=== PATIENT | female | born 1995 | race Caucasian/White ===

== ENCOUNTER → 2018-03-30 13:40 | Outpatient (CLI) | payer OTHER, SELFPAY ==
[2018-03-30 16:37] LABS: Hepatitis B Surface Antigen NEGATIVE s/c (NEGATIVE)
[2018-03-30 16:38] LABS: HIV 1 and 2 Antibody NEGATIVE (NEGATIVE); Hep C Virus Ab w/Reflex Quant NEGATIVE s/c (NEGATIVE)
[2018-04-07 14:52] LABS: Rapid Plasma Reagin NON REACTIVE
== END ==
PROVIDERS: Visit Provider Physician Assistant
DX: N89.8 Other specified noninflammatory disorders of vagina (principal); Z11.3 Encounter for screening for infections with a predominantly sexual mode of transmission
CPT/HCPCS: 36415; 86592; 86703; 86803; 87210; 87340; 87491; 87591

== ENCOUNTER → 2018-04-06 11:13 | Outpatient (CLI) | payer BC, SELFPAY ==
[2018-04-06 14:48] LABS: Urine N gonorrhoeae NOT DETECTED
[2018-04-07 10:47] LABS: Urine Chlamydia DETECTED
== END ==
PROVIDERS: Visit Provider Physician Assistant
DX: N89.8 Other specified noninflammatory disorders of vagina (principal)
CPT/HCPCS: 87210; 87491; 87591

== ENCOUNTER → 2018-04-06 11:35 | Outpatient (CLI) | payer BC, SELFPAY ==
[2018-04-06 12:35] LABS: Hematocrit 42.4 % (36-46); Hemoglobin 14.4 g/dL (12.0-16.0); Mean Corpuscular Hemoglobin 30.6 PG (26-34); Mean Corpuscular Volume 90.2 fL (80-100); Platelet Count 322 X10^3/uL (150-400); White Blood Cell Count 6.6 X10^3/uL (4.5-11.0)
[2018-04-06 12:54] LABS: Alanine Aminotransferase 27 IU/L (9-52); Albumin 4.5 g/dL (3.5-5.0); Albumin Globulin Ratio 1.5 (1.0-2.8); Alkaline Phosphatase 76 U/L (38-126); Aspartate Aminotransferase 24 IU/L (14-36); BUN Creatinine Ratio 21.4 (6-22); Bilirubin Total 1.2 mg/dL (0.2-1.3); Blood Urea Nitrogen 15 mg/dL (7-17); Calcium 9.5 mg/dL (8.4-10.2); Carbon Dioxide 32 mmol/L (22-32); Chloride 102 mmol/L (98-107); Estimated Glomerular Filt Rate > 60.0 mL/min (>60); Glucose 88 mg/dL (70-100); HEMOLYSIS < 15 (0-50); Potassium 4.3 mmol/L (3.4-5.1); Sodium 143 mmol/L (137-145); Total Protein 7.5 g/dL (6.3-8.2)
[2018-04-06 13:00] LABS: Neutrophils Absolute Manual 4026 /uL (3000-5900); RBC Morphology Normal Morphology; Total Cells Counted 100
== END ==
PROVIDERS: Visit Provider Physician Assistant
DX: R10.9 Unspecified abdominal pain (principal); N89.8 Other specified noninflammatory disorders of vagina
CPT/HCPCS: 36415; 80053; 85025; 87210; 87491; 87591

== ENCOUNTER → 2018-05-05 14:30 | Outpatient (CLI) | payer BC, SELFPAY ==
[2018-05-05 15:15] LABS: Pregnancy Test Serum,Qual Negative (Negative)
[2018-05-05 16:46] LABS: Urine N gonorrhoeae NOT DETECTED
[2018-05-05 18:43] LABS: Urine Chlamydia NOT DETECTED
== END ==
PROVIDERS: Visit Provider Physician Assistant
DX: Z20.2 Contact with and (suspected) exposure to infections with a predominantly sexual mode of transmission (principal); N93.9 Abnormal uterine and vaginal bleeding, unspecified
CPT/HCPCS: 36415; 84703; 87491; 87591

== ENCOUNTER → 2018-07-18 17:08 | Outpatient (CLI) | payer OTHER, SELFPAY | PROVIDERS: PCP Physician Assistant; Visit Provider Physician Assistant | DX: N89.8 Other specified noninflammatory disorders of vagina (principal) | CPT/HCPCS: 87210 ==

== ENCOUNTER → 2018-07-31 15:28 | Outpatient (CLI) | payer OTHER, SELFPAY ==
[2018-07-31 17:44] LABS: Urine N gonorrhoeae NOT DETECTED
[2018-07-31 17:59] LABS: Urine Chlamydia NOT DETECTED
== END ==
PROVIDERS: PCP Physician Assistant; Visit Provider Physician Assistant
DX: N89.9 Noninflammatory disorder of vagina, unspecified (principal); L29.8 Other pruritus
CPT/HCPCS: 87210; 87491; 87591